=== PATIENT | female | born 1945 | race Caucasian/White ===

== ENCOUNTER → 2016-11-24 | Outpatient (CLI) | payer MEDICARE, BC ==
[~2016-11-24] MED LIST: ADVAIR 250-501 EACH INH; ADVIL200 MG PO; ATIVAN 0.5MG0.5 MG PO; BREO ELLIPTA 21 EACH INH; CALCIUM 600 +1 EAC6 PO; CPAP INH; LIPITOR20 M1 PO; LISINOPRIL-HCT1 EACH PO; PROVENTIL OR V6.7 GM INH; PROZAC20 MG PO; SYNTHROID25 MCG PO; TYLENOL EXTRA500 MG PO
== END | disposition disaster alternative care site (69) ==
LOC: GRAD 11-11 13:00
DX: J84.9 Interstitial pulmonary disease, unspecified (principal)

== ENCOUNTER → 2016-11-29 | Outpatient (CLI) | payer MEDICARE, BC | END | disposition disaster alternative care site (69) | LOC: GBCOE 14:16 | DX: Z08 Encounter for follow-up examination after completed treatment for malignant neoplasm (principal); Z85.3 Personal history of malignant neoplasm of breast; R92.1 Mammographic calcification found on diagnostic imaging of breast | CPT/HCPCS: G0204; G0279 ==

== ENCOUNTER → 2016-12-16 | Outpatient (CLI) | payer MEDICARE, BC ==
--- NOTE | 2016-12-16 09:45 | NUR ---
Met with patient prior her sterotactic breast biopsy. I have nagivated patient in the past when she went through breast cancer treatment so patient is aware of my role. Received permission to call patient tomorrow as a follow up. will continue to follow.
== END | disposition disaster alternative care site (69) ==
LOC: GPOC 12-10 13:00 → GBCOE 09:14 → GPOC 10:00
PROC: 0HBU3ZX Excision of Left Breast, Percutaneous Approach, Diagnostic (ICD-10-PCS; principal; 2016-12-16)
DX: M79.89 Other specified soft tissue disorders (principal); R92.0 Mammographic microcalcification found on diagnostic imaging of breast; Z85.3 Personal history of malignant neoplasm of breast
CPT/HCPCS: J7050